=== PATIENT | male | born 1970 | race Hispanic/Latino ===

== ENCOUNTER → 2018-05-11 | Outpatient (REF) | payer OTHER ==
[~2018-05-11] MED LIST: CRESTOR10 MG PO; CRESTOR5 MG PO; FISH OIL1000 MG PO; TOBRAMYCIN0.3 % OD
[2018-05-11 09:11] LABS: ALBUMIN 4.3 g/dL (3.2-5.0); ALKALINE PHOSPHATASE 63 u/l (38-126); ANION GAP 14 (6-22 (CALC)); BILIRUBIN, TOTAL 0.6 mg/dL (0.0-1.4); BUN 15 mg/dL (9-20); BUN/CREATININE RATIO 17 (12-20 (CALC)); CARBON DIOXIDE 27 mmol/l (22-30); CHLORIDE 104 mmol/l (95-108); CHOLESTEROL HDL RATIO 9.3 (<4.4 (CALC)); CREATININE 0.9 mg/dL (0.7-1.3); GFR > 60 ML/MIN (>=60 (CALC)); GFR FOR AFR.AMER. > 60 ML/MIN (>=60 (CALC)); HDL CHOLESTEROL 33 mg/dL (>=40); POTASSIUM 4.8 mmol/l (3.5-5.1); SGOT/AST 29 u/l (17-59); SODIUM 140 mmol/l (137-146); TOTAL CHOLESTEROL 310 mg/dl (0-199); TOTAL PROTEIN 7.6 g/dL (6.3-8.2)
[2018-05-11 09:19] LABS: VLDL CHOLESTROL 254 mg/dl (5-56 (CALC))
[2018-05-11 09:23] LABS: CALCULATED LDLCHOLESTEROL 23 mg/dL (62-129 (CALC)); TOTAL TRIGLYCERIDES 1268 mg/dl (30-149)
== END | disposition home or self-care (01) | DRG 642 ==
LOC: LAB 08:11
PROVIDERS: ATTEND Internal Medicine Endocrinology, Diabetes & Metabolism
DX: E78.5 Hyperlipidemia, unspecified (principal); R53.83 Other fatigue